=== PATIENT | male | born 1990 | race Caucasian/White ===

== ENCOUNTER 2017-06-26 18:45 | Emergency (ER) | payer OTHER ==
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
[2017-06-26 19:13] VITALS: RESP 16
[2017-06-26] MEDS ORDERED: KETOROLAC 15 MG/1 ML SDV IVP ONE (19:27)
[2017-06-26 20:03] VITALS: BP 130/70; PULSE 54; TEMP 98.4; O2SAT 97
== END 2017-06-26 20:50 | disposition home or self-care (01) ==
DX: S50.311A Abrasion of right elbow, initial encounter (principal); S80.812A Abrasion, left lower leg, initial encounter; S90.511A Abrasion, right ankle, initial encounter; T14.8XXA Other injury of unspecified body region, initial encounter; V18.0XXA Pedal cycle driver injured in noncollision transport accident in nontraffic accident, initial encounter; Y92.410 Unspecified street and highway as the place of occurrence of the external cause; Y99.8 Other external cause status; Y93.55 Activity, bike riding
CPT/HCPCS: 96374; J1885